=== PATIENT | female | born 1945 | race Caucasian/White ===

== ENCOUNTER → 2016-06-23 | Outpatient (CLI) | payer MEDICARE, BC | LOC: MC.RAD 08:49 | DX: Z12.31 Encounter for screening mammogram for malignant neoplasm of breast (principal) ==

== ENCOUNTER → 2017-06-27 | Outpatient (CLI) | payer MEDICARE, BC | LOC: MC.RAD 09:11 | DX: Z12.31 Encounter for screening mammogram for malignant neoplasm of breast (principal) ==

== ENCOUNTER → 2018-07-03 | Outpatient (CLI) | payer MEDICARE, OTHER | LOC: MC.RAD 06-30 09:00 | DX: Z12.31 Encounter for screening mammogram for malignant neoplasm of breast (principal) ==

== ENCOUNTER 2019-09-28 11:26 | Inpatient (IN) | payer MEDICARE, OTHER ==
[~2019-09-28] VITALS: Ht 167.6 cm; Wt 64.9 kg
[2019-11-08] VITALS (10 sets, daily range): BP systolic 90–154; BP diastolic 42–69; PULSE 76–93; TEMP 96.8–97.7
[2019-11-08] MEDS ORDERED: ONE-A-DAY WOMEN1 TAB PO (13:02)
[2019-11-08] MEDS ORDERED: SYNTHROID0.112 MG/T PO (13:03)
[2019-11-08] MEDS ORDERED: CALCIUM CARBON650 M2 PO (13:03)
[2019-11-08] MEDS ORDERED: VITAMIN C500 MG PO (13:04)
[2019-11-08] MEDS ORDERED: ESTRACE0.5 MG PO (13:04)
--- NOTE | 2019-11-08 13:06 | NUR ---
TO RM AT 1215- CALL LIGHT IN REACH
--- NOTE | 2019-11-08 23:11 | NUR ---
Patient denies pain at this time. Offered to sit in recliner for 30 min per doctors request. Patient prefers to dangle. Assisted to dangle at this time. After approximately 15 min repoted some nausea. Requested sprite and to lay back down. Reported feeling better after lying down. Refused offer for zofran. Will continue to monitor.
[2019-11-09 03:26] VITALS: BP 103/52; PULSE 118; TEMP 97.8
--- NOTE | 2019-11-09 07:22 | NUR ---
Assisted up to recliner; tolerated transfer well.
[2019-11-09 07:53] VITALS: BP 123/51; PULSE 86; TEMP 98
--- NOTE | 2019-11-09 08:50 | NUR ---
Patient in bed resting. Alert and oriented x 3. Assessment complete. Denies pain at this time, however states mild shoulder discomfort. Lap sites x 6 with edges well approximated. Fluids infusing via pump to left forarm IV. Gee to dependent drainage with clear yellow urine. Denies further needs at this time.
--- NOTE | 2019-11-09 09:40 | NUR ---
Dr. Jo in to see patient.
--- NOTE | 2019-11-09 10:03 | NUR ---
SW met with the patient to discuss discharge plan. The patient lives in [place] with her , Saturnino ([phone]). She reports independence with ADLs and does not have any DME. The patient's PCP is Dr. Jeremías Marin and she receives her medications at [facility]. She reports no difficulties obtaining her meds. The patient's advanced directives are in her chart. Her DPOA-HC is her or son, Sd Andrade. The patient plans to return home with her upon discharge. No additional needs at this time.
--- NOTE | 2019-11-09 10:40 | NUR ---
Gee catheter discontinued per orders. IV fluids to INT. Denies further needs at this time.
[2019-11-09 12:53] VITALS: BP 125/53; PULSE 77; TEMP 98
--- NOTE | 2019-11-09 14:01 | NUR ---
Patient up ambulating in halls independently, no needs at this time.
--- NOTE | 2019-11-09 14:40 | NUR ---
Contacted Dr. Jo, patient voiding without difficulties. Up ambulating in halls and would like to discharge.
--- NOTE | 2019-11-09 15:19 | NUR ---
Discharge education provided to patient. Educated on signs and symptoms of infection. Patient states she has a follow up appointment with Dr. Jo scheduled. All questions answered. Denies further needs at this time. Denies pain at this time. INT to left forarm discontinued, catheter tip intact. Denies further needs at this time
--- NOTE | 2019-11-09 15:50 | NUR ---
Patient ambulated out with surgical staff. no further needs at this time.
== END 2019-11-09 15:50 | disposition home or self-care (01) | DRG 748 ==
LOC: SURG 11-08 11:42 → INPTSU 11-08 11:42 → SURG 11-08 13:00
PROVIDERS: ADMIT Urology
PROC: 8E0W4CZ Robotic Assisted Procedure of Trunk Region, Percutaneous Endoscopic Approach (ICD-10-PCS; 2019-11-08)
PROC: 0USG4ZZ Reposition Vagina, Percutaneous Endoscopic Approach (ICD-10-PCS; principal; 2019-11-08 14:00)
DX: N99.3 Prolapse of vaginal vault after hysterectomy (principal)
CPT/HCPCS: A4314; C1781; J0690; J1100; J1885; J2405; J2704; J3010; J7120